=== PATIENT | female | born 1990 | race Caucasian/White ===

== ENCOUNTER → 2016-09-02 | Outpatient (CLI) | payer OTHER ==
[~2016-09-02] MED LIST: CYCL-36 PO; DICL75 PO; Z.0.BCPILL PO
== END ==
LOC: HPND 09:50
PROVIDERS: ATTEND Obstetrics & Gynecology
DX: N02.8 Recurrent and persistent hematuria with other morphologic changes (principal); O26.90 Pregnancy related conditions, unspecified, unspecified trimester; Z3A.00 Weeks of gestation of pregnancy not specified
CPT/HCPCS: 76811

== ENCOUNTER → 2016-10-03 | Outpatient (CLI) | payer OTHER | LOC: HPND 09:27 | PROVIDERS: ATTEND Obstetrics & Gynecology | DX: O09.292 Supervision of pregnancy with other poor reproductive or obstetric history, second trimester (principal); O99.212 Obesity complicating pregnancy, second trimester; Z3A.32 32 weeks gestation of pregnancy | CPT/HCPCS: 76816 ==

== ENCOUNTER 2016-10-25 22:57 | Emergency (ER) | payer OTHER ==
--- NOTE | 2016-10-25 23:21 | PD ---
HPI Chief Complaint Possibly leaking fluid Date Seen: Oct 25, 2016 Time Seen: 23:10 Travel History International Travel<30 Days: No Contact w/Intl Traveler<30Days: No Known Affected Area: No History of Present Illness HPI 25-year-old primigravida at 35+ weeks gestation who thinks she may have had some fluid leaking. She denies any contractions or bleeding. She reports good movement. She has primarily felt just a little dampness and her mother suggested she come for evaluation of this. Para: 0 : 1 History Past Medical History Medical History: Denies Significant Hx Obstetric History Obstetric History Primigravida patient with Dr. Kumar. Uncomplicated course Past Surgical History Surgical History: No Previous Surgery Family History Family History: Negative Social History Alcohol Use: No Tobacco Use: No Substance Abuse: No Allergies-Medications (Allergen,Severity, Reaction): Coded Allergies: No Known Allergies (Verified , 04/02/13) Home Meds Active Scripts Cyclobenzaprine Hcl (Flexeril)10 Mg Tab10 Mg PO TID #30 Prov:Michael Garcia MD 08/10/13 Diclofenac Sod (Diclofenac Sodium Dr)75 Mg Tab75 Mg PO BID 20 Days Prov:Michael Garcia MD 08/10/13 Reported Medications Miscellaneous ( Control Pills) Tab1 Tab PO DAILY 08/10/13 Review of Systems Except as stated in HPI: all other systems reviewed are Neg Physical Exam Narrative GENERAL: Well-nourished, well-developed patient. SKIN: Warm and dry. HEAD: Normocephalic and atraumatic. EYES: No scleral icterus. No injection or drainage. ENT: No nasal drainage noted. Mucous membranes pink. Airway patent. NECK: Supple, trachea midline. No JVD. CARDIOVASCULAR: Regular rate and rhythm without murmurs, gallops, or rubs. RESPIRATORY: Breath sounds equal bilaterally. No accessory muscle use. ABDOMEN/GI: Abdomen soft, non-tender, bowel sounds present, no rebound, no guarding Gravid to [-] weeks size Fundal Height: [-35] GENITOURINARY: External Genitalia: intact and normal in appearance BUS glands: [-Negative] Cervix: [-] Dilatation: [Closed-] Effacement: [-50] Station: [-2-] Presentation: [Vertex-] Membranes: [intact ] Uterine Contractions: [-No] FHT's: Category: [1-] Baseline: [-] Reactive: [-Yes] Variability: [-] Decels: [-] EXTREMITIES: No cyanosis or edema. BACK: Nontender without obvious deformity. No CVA tenderness. NEUROLOGICAL: Awake and alert. Motor and sensory grossly within normal limits. Five out of 5 muscle strength in all muscle groups. Normal speech. Data Data Vital Signs Reviewed: Yes MDM Medical Record Reviewed: Yes Narrative Course / MDM Assessment: 35+ week intrauterine with negative evaluation for ruptured membranes. Plan: Continue to follow up for routine care visits. Diagnosis Diagnosis: Primary Impression: 35 weeks gestation of Additional Impression: amniotic fluid not leaking Disposition: 01 DISCHARGE HOME John Rosenthal MD Oct 25, 2016 23:21
== END 2016-10-25 23:55 | disposition home or self-care (01) ==
LOC: HOBED 22:57
DX: O26.893 Other specified pregnancy related conditions, third trimester (principal); Z3A.35 35 weeks gestation of pregnancy
CPT/HCPCS: 84112; 99282

== ENCOUNTER 2016-10-28 16:44 | Emergency (ER) | payer OTHER ==
[2016-10-28] VITALS (8 sets, daily range): BP systolic 132–150; BP diastolic 57–79; PULSE 97–106
[~2016-10-28] VITALS: Ht 172.7 cm; Wt 131.5 kg
[2016-10-28 17:56] LABS: HEMATOCRIT 33.7 % (35.0-46.0); MEAN CELL VOLUME 85.9 FL (80.0-100.0); MEAN CORPUSCULAR HEMOGLOBIN 29.3 PG (27.0-34.0); MEAN CORPUSCULAR HGB CONC 34.1 % (32.0-36.0); PLATELET COUNT 250 TH/MM3 (150-450); RED BLOOD COUNT 3.92 MIL/MM3 (4.00-5.30); RED CELL DISTRIBUTION WIDTH 13.7 % (11.6-17.2); REVIEW FLAG FINAL; WHITE BLOOD COUNT 10.2 TH/MM3 (4.0-11.0)
[2016-10-28 17:59] LABS: BLOOD, URINE SMALL (NEG); COMMENT (UR) CULT NOT INDICATED; CULTURE IF INDICATED CULT NOT INDICATED; GLUCOSE,URINE NEG (NEG); KETONE, URINE NEG (NEG); MUCUS URINE FEW /lpf (OCC); NITRITE,URINE NEG (NEG); SQUAMOUS EPITHELIAL CELL URINE 13 /hpf (0-5); URINE COLOR YELLOW (YELLW/STRAW)
[2016-10-28 18:12] LABS: ALT (GPT) 24 U/L (10-53); ANION GAP 9 MEQ/L (5-15); AST (GOT) 16 U/L (15-37); BICARBONATE 25.1 MEQ/L (21.0-32.0); CHLORIDE 106 MEQ/L (98-107); GLOMERULAR FILTRATION RATE 113 ML/MIN (>89); POTASSIUM 3.7 MEQ/L (3.5-5.1); SODIUM (NA) 140 MEQ/L (136-145); URIC ACID 3.7 MG/DL (2.6-6.0)
[2016-10-28 18:14] LABS: ALKALINE PHOSPHATASE 110 U/L (45-117); BLOOD UREA NITROGEN 11 MG/DL (7-18); TOTAL BILIRUBIN ADULT 0.2 MG/DL (0.2-1.0)
--- NOTE | 2016-10-28 18:54 | PD ---
HPI Chief Complaint sent from OB office for pre-e evaluation Date Seen: Oct 28, 2016 Time Seen: 17:30 Travel History International Travel<30 Days: No Contact w/Intl Traveler<30Days: No Known Affected Area: No History of Present Illness HPI Pt is a 25 y/o G1 with IUP at 35.5 wks who presents from OB office for pre-e eval. pt states bp in office was 124/84, but swelling has increased. Pt denies headache, ruq pain, vision changes. She has been having LE edema for weeks, but now more persistant. She also notices tightness in her hands by the end of the day. 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 Para: 0 : 1 History Past Medical History Narrative Medical IGA nephropathy obesity Past Surgical History Narrative Surgical oral surgery Family History Family History: Negative Social History Alcohol Use: No Tobacco Use: No Substance Abuse: No Allergies-Medications (Allergen,Severity, Reaction): Coded Allergies: No Known Allergies (Verified , 04/02/13) Home Meds Discontinued Reported Medications Miscellaneous ( Control Pills) Tab1 Tab PO DAILY 08/10/13 Discontinued Scripts Cyclobenzaprine Hcl (Flexeril)10 Mg Tab10 Mg PO TID #30 Prov:Michael Garcia MD 08/10/13 Diclofenac Sod (Diclofenac Sodium Dr)75 Mg Tab75 Mg PO BID 20 Days Prov:Michael Garcia MD 08/10/13 Narrative Medication PNV, tums Review of Systems General / Constitutional: Weight Gain Eyes: No: Diploplia, Blurred Vision, Visual changes, Pain, Photophobia, Other HENT: No: Headaches, Vertigo, Dental Difficulties, Lightheadedness, Other Cardiovascular: No: Irregular Rhythm, Chest Pain or Discomfort, Palpitations, Tachycardia, Syncope, Varicosities, Edema, Cyanosis, Other Respiratory: No: Cough, Short of Breath, Wheezing, Other Gastrointestinal: No: Nausea, Vomiting, Diarrhea, Abdominal Pain, Hematemesis, Hematochezia, Constipation, Changes in Bowel Habits, Indigestion, Loss of Appetite, Other Genitourinary: No: Urgency, Frequency, Dysuria, Nocturia, Hematuria, Decreased Urinary Output, Oliguria, Hesitancy, Dribbling, Incontinence, Pelvic Pain, Dyspareunia, Discharge, Menorrhagia, Vaginal Bleeding, Other Musculoskeletal: Edema Skin: No Rash, No Itching, No Dryness, No Lumps, No Change in Pigmentation, No Change in Nails, No Alopecia, No Lesions, No Breast Lumps, No Breast Tenderness , No Breast Swelling, No Other Neurologic: No: Weakness, Dizziness, Syncope, Focal Abnormalities, Coordination Problem, Headache, Slurred Speech, Seizures, Other Psychiatric: No: Anxiety, Depression, Suicidal Ideations, Disorder of Thought, Mood Disorder, Substance Abuse, Homicidal Ideation, Other Endocrine: No: Heat Intolerance, Cold Intolerance, Polydipsia, Polyuria, Other Hematologic/Lymphatic: No Easy Bruising, No Lymph Node Enlargement, No Other Physical Exam Vital Signs Date Time Temp Pulse Resp B/P Pulse Ox O2 Delivery O2 Flow Rate FiO2 10/28/16 17:51 103 141/57 10/28/16 17:46 104 10/28/16 17:36 104 149/59 10/28/16 17:31 100 150/66 10/28/16 17:25 103 139/79 10/28/16 17:01 106 138/76 132/74, 134/61 Narrative GENERAL: Well-nourished, well-developed patient. SKIN: Warm and dry. HEAD: Normocephalic and atraumatic. EYES: No scleral icterus. No injection or drainage. ENT: No nasal drainage noted. Mucous membranes pink. Airway patent. NECK: Supple, trachea midline. No JVD. CARDIOVASCULAR: Regular rate and rhythm without murmurs, gallops, or rubs. RESPIRATORY: Breath sounds equal bilaterally. No accessory muscle use. BREASTS: Bilateral exam showed no masses , no retractions, no nipple discharge. ABDOMEN/GI: Abdomen soft, non-tender, bowel sounds present, no rebound, no guarding Gravid GENITOURINARY: Uterine Contractions: [none] FHT's: Category: 1 Baseline: 140 Reactive: yes Variability: mod Decels: no EXTREMITIES: 1+ pitting edema to knee BACK: Nontender without obvious deformity. No CVA tenderness. NEUROLOGICAL: Awake and alert. Motor and sensory grossly within normal limits. Five out of 5 muscle strength in all muscle groups. Normal speech. unable to illicit patellar DTRs Data Data Vital Signs Reviewed: Yes Orders Vital Signs (Adult) .ON ADMISSION (10/28/16 17:20) ^ Labor Status (10/28/16 17:20) Urinalysis - C+S If Indicated (10/28/16 17:20) ^ Non Stress Test (10/28/16 17:20) Cbc No Diff, Includes Plts (10/28/16 17:20) Comprehensive Metabolic Panel (10/28/16 17:20) Uric Acid (10/28/16 17:20) Labs Laboratory Tests Test 10/28/16 10/28/16 17:36 17:40 Urine Color YELLOW Urine Turbidity HAZY Urine pH 6.0 Urine Specific [place] 1.025 Urine Protein 100 Urine Glucose (UA) NEG Urine Ketones NEG Urine Occult Blood SMALL Urine Nitrite NEG Urine Bilirubin NEG Urine Urobilinogen LESS THAN 2.0 Urine Leukocyte Esterase NEG Urine RBC 18 Urine WBC 3 Urine Squamous Epithelial 13 Cells Urine Mucus FEW Microscopic Urinalysis Comment CULT NOT INDICATED White Blood Count 10.2 Red Blood Count 3.92 Hemoglobin 11.5 Hematocrit 33.7 Mean Corpuscular Volume 85.9 Mean Corpuscular Hemoglobin 29.3 Mean Corpuscular Hemoglobin 34.1 Concent Red Cell Distribution Width 13.7 Platelet Count 250 Mean Platelet Volume 8.0 Sodium Level 140 Potassium Level 3.7 Chloride Level 106 Carbon Dioxide Level 25.1 Anion Gap 9 Blood Urea Nitrogen 11 Creatinine 0.64 Estimat Glomerular Filtration 113 Rate Random Glucose 110 Uric Acid 3.7 Calcium Level 9.2 Total Bilirubin 0.2 Aspartate Amino Transf 16 (AST/SGOT) Alanine Aminotransferase 24 (ALT/SGPT) Alkaline Phosphatase 110 Total Protein 6.5 Albumin 2.6 MDM Medical Record Reviewed: Yes Narrative Course / MDM 25 y/o G1 with IUP at 35.5 wks with mildly elevated blood pressures, LE edema --preeclampsia labs wnl and patient asymptomatic --picture complicated by chronic proteinuria (IGA nephropathy) last 24 hr urine with 800 mg protein/24 hrs plan: d/c home modified bedrest at home s/sx pre-e reviewed s/sx labor reviewed C reviewed call Ob office in am for return appt within 1 wk return for any s/sx preeclampsia, s/sx labor, decreased FM or other obstetric concerns Diagnosis Diagnosis: Primary Impression: Edema in preg-delivered Additional Impression: 35 weeks gestation of Disposition: 01 DISCHARGE HOME Jaya Reyes MD Oct 28, 2016 18:54
== END 2016-10-28 18:59 | disposition home or self-care (01) ==
LOC: HOBED 16:44
DX: O12.03 Gestational edema, third trimester (principal); Z3A.35 35 weeks gestation of pregnancy
CPT/HCPCS: 59025; 80053; 81001; 84550; 85027

== ENCOUNTER 2016-11-02 18:31 | Emergency (ER) | payer OTHER ==
[~2016-11-02] VITALS: Ht 172.7 cm; Wt 131.5 kg
[2016-11-02 19:51] LABS: BACTERIA, URINE RARE /hpf; BLOOD, URINE SMALL (NEG); COMMENT (UR) CULT NOT INDICATED; CULTURE IF INDICATED CULT NOT INDICATED; GLUCOSE,URINE NEG (NEG); KETONE, URINE NEG (NEG); MUCUS URINE FEW /lpf (OCC); NITRITE,URINE NEG (NEG); SQUAMOUS EPITHELIAL CELL URINE 4 /hpf (0-5); URINE COLOR LIGHT-YELLOW (YELLW/STRAW)
--- NOTE | 2016-11-02 20:05 | PD ---
HPI Chief Complaint High blood pressure taken at [employer] store Date Seen: Nov 02, 2016 Travel History International Travel<30 Days: No Contact w/Intl Traveler<30Days: No Known Affected Area: No History of Present Illness HPI Patient is 25-year-old white female at 36 weeks' gestation because the [facility] clinic who presents with elevated blood pressures when she went [place] today and checked her pressure, the patient's blood pressures are 150 over 80s was 1 was 150/90 and a 150/100 patient has no complaints of blurry vision and headaches abdominal pain however she does complain of increased swelling she noted today in her lower extremities but much more so that should seen before so assisting bed rest which she was told stay at bedrest she got up and went [employer] and while [employer] and called her mother is a nurse and mother told her to get her blood pressure check and she did and it was up at that time. heart rate tracing today is reactive and no contractions are regular. Blood pressures here on OB ED are normal 110 over 60s ,130/80 Para: 0 : 1 History Past Medical History Narrative Medical Patient has a history of IgA nephropathy and chronically spill significant proteinuria. Last 24-hour urine was a little over a week ago was 800 mg protein in 24 hours and she routinely dipsticks 2+ urine protein Social History Alcohol Use: No Tobacco Use: No Substance Abuse: No Allergies-Medications (Allergen,Severity, Reaction): Coded Allergies: No Known Allergies (Verified , 04/02/13) Home Meds Discontinued Reported Medications Miscellaneous ( Control Pills) Tab1 Tab PO DAILY 08/10/13 Discontinued Scripts Cyclobenzaprine Hcl (Flexeril)10 Mg Tab10 Mg PO TID #30 Prov:Michael Garcia MD 08/10/13 Diclofenac Sod (Diclofenac Sodium Dr)75 Mg Tab75 Mg PO BID 20 Days Prov:iMchael Garcia MD 08/10/13 Review of Systems General / Constitutional: No: Fever, Weight Gain, Chills, Other Eyes: No: Diploplia, Blurred Vision, Visual changes, Pain, Photophobia HENT: No: Headaches, Vertigo, Lightheadedness Cardiovascular: No: Irregular Rhythm, Chest Pain or Discomfort, Palpitations, Tachycardia, Syncope, Varicosities, Edema, Cyanosis Respiratory: No: Cough, Short of Breath, Other Gastrointestinal: No: Nausea, Vomiting, Diarrhea Genitourinary: No: Decreased Urinary Output, Oliguria Musculoskeletal: No: Limited ROM, Weakness, Cramping, Edema, Pain Skin: No Rash, No Itching, No Dryness, No Lumps, No Change in Pigmentation, No Change in Nails, No Alopecia, No Lesions Neurologic: No: Weakness, Dizziness, Syncope, Focal Abnormalities, Coordination Problem, Headache, Slurred Speech, Seizures Psychiatric: No: Depression, Suicidal Ideations, Homicidal Ideation Endocrine: No: Heat Intolerance, Cold Intolerance, Polydipsia, Polyuria, Other Physical Exam Narrative GENERAL: Well-nourished, well-developed patient. SKIN: Warm and dry. HEAD: Normocephalic and atraumatic. EYES: No scleral icterus. No injection or drainage. ENT: No nasal drainage noted. Mucous membranes pink. Airway patent. NECK: Supple, trachea midline. No JVD. CARDIOVASCULAR: Regular rate and rhythm without murmurs, gallops, or rubs. RESPIRATORY: Breath sounds equal bilaterally. No accessory muscle use. BREASTS: Bilateral exam showed no masses , no retractions, no nipple discharge. ABDOMEN/GI: Abdomen soft, non-tender, bowel sounds present, no rebound, no guarding Gravid to [-36] weeks size Fundal Height: [36-] GENITOURINARY: Membranes: [intact ] Uterine Contractions: [Occasional-] FHT's: Category: [1-] Baseline: [133-] Reactive: [yes-] Variability: [mod-] Decels: [-0] EXTREMITIES: No cyanosis, she has 2+ nonpitting edema in the pretibial area BACK: Nontender without obvious deformity. No CVA tenderness. NEUROLOGICAL: Awake and alert. Motor and sensory grossly within normal limits. Five out of 5 muscle strength in all muscle groups. Normal speech, normal DTRs Data Data Orders Urinalysis - C+S If Indicated (11/02/16 19:05) Labs Laboratory Tests Test 11/02/16 18:50 Urine Color LIGHT-YELLOW Urine Turbidity HAZY Urine pH 6.0 Urine Specific [place] 1.012 Urine Protein TRACE Urine Glucose (UA) NEG Urine Ketones NEG Urine Occult Blood SMALL Urine Nitrite NEG Urine Bilirubin NEG Urine Urobilinogen LESS THAN 2.0 Urine Leukocyte Esterase TRACE Urine RBC 2 Urine WBC 3 Urine Squamous Epithelial 4 Cells Urine Bacteria RARE Urine Mucus FEW Microscopic Urinalysis Comment CULT NOT INDICATED MDM Interpretation(s) This patient is 25-year-old white female at 36 weeks followed by [facility] clinic. Recently is developed elevated blood pressures. She has a history of a and intrinsic nephropathy that they cause her chronically spill significant protein. She noted high blood pressures today when she went out to [facility], today on OB ED her blood pressures were all within normal limits, urinalysis shows only a trace protein today and is also negative for any infection , therefore she does not appear to be an increase in protein she seems to be spilling on a regular basis Plan Plan patient be discharged home to bed rest only getting up to the bathroom and eat otherwise she is reclined with her legs up, she is to see a [facility] providers of this upcoming week and a repeat 24-hour urine protein could be done as an outpatient and is indicated, at the point she has a great increase in her proteinuria or persistent hypertension and delivery very likely indicated Diagnosis Diagnosis: Primary Impression: Hypertension affecting in third trimester Additional Impression: Nephropathy Disposition: 01 DISCHARGE HOME Condition: Stable Patient Instructions: General Instructions Departure Forms: Tests/Procedures Lincoln Becker II, MD Nov 02, 2016 20:05
== END 2016-11-02 20:09 | disposition home or self-care (01) ==
LOC: HOBED 18:31
DX: O16.3 Unspecified maternal hypertension, third trimester (principal); Z3A.36 36 weeks gestation of pregnancy
CPT/HCPCS: 81001; 99282

== ENCOUNTER → 2016-11-04 | Outpatient (CLI) | payer OTHER | LOC: HPND 13:59 | PROVIDERS: ATTEND Obstetrics & Gynecology | DX: O99.213 Obesity complicating pregnancy, third trimester (principal); O26.843 Uterine size-date discrepancy, third trimester; E66.09 Other obesity due to excess calories; Z68.37 Body mass index [BMI] 37.0-37.9, adult; Z3A.36 36 weeks gestation of pregnancy | CPT/HCPCS: 76816 ==

== ENCOUNTER 2016-11-12 15:49 | Emergency (ER) | payer OTHER ==
[2016-11-12] VITALS (21 sets, daily range): BP systolic 103–136; BP diastolic 62–94; PULSE 92–125
[2016-11-12 18:01] LABS: HEMATOCRIT 33.7 % (35.0-46.0); MEAN CELL VOLUME 87.3 FL (80.0-100.0); MEAN CORPUSCULAR HEMOGLOBIN 29.2 PG (27.0-34.0); MEAN CORPUSCULAR HGB CONC 33.4 % (32.0-36.0); PLATELET COUNT 239 TH/MM3 (150-450); RED BLOOD COUNT 3.86 MIL/MM3 (4.00-5.30); REVIEW FLAG FINAL; WHITE BLOOD COUNT 10.2 TH/MM3 (4.0-11.0)
[2016-11-12 18:08] LABS: BACTERIA, URINE RARE /hpf; BLOOD, URINE SMALL (NEG); COMMENT (UR) CULT NOT INDICATED; CULTURE IF INDICATED CULT NOT INDICATED; GLUCOSE,URINE NEG (NEG); HYALINE CAST, URINE 1 /lpf (RARE); KETONE, URINE TRACE mg/dL (NEG); MUCUS URINE MANY /lpf (OCC); NITRITE,URINE NEG (NEG); SQUAMOUS EPITHELIAL CELL URINE 4 /hpf (0-5); URINE COLOR YELLOW (YELLW/STRAW)
[2016-11-12 18:13] LABS: ALT (GPT) 28 U/L (10-53); ANION GAP 12 MEQ/L (5-15); BICARBONATE 21.1 MEQ/L (21.0-32.0); BLOOD UREA NITROGEN 15 MG/DL (7-18); CHLORIDE 108 MEQ/L (98-107); GLOMERULAR FILTRATION RATE 102 ML/MIN (>89); POTASSIUM 3.9 MEQ/L (3.5-5.1); SODIUM (NA) 141 MEQ/L (136-145); URIC ACID 4.5 MG/DL (2.6-6.0)
[2016-11-12 18:17] LABS: ALKALINE PHOSPHATASE 127 U/L (45-117); AST (GOT) 19 U/L (15-37); TOTAL BILIRUBIN ADULT 0.1 MG/DL (0.2-1.0)
--- NOTE | 2016-11-12 18:39 | PD ---
HPI Chief Complaint sent from OB office for preeclampsia evaluation Date Seen: Nov 12, 2016 Time Seen: 18:00 Travel History International Travel<30 Days: No Contact w/Intl Traveler<30Days: No Known Affected Area: No History of Present Illness HPI Pt is a 25 y/o G1 with IUP at 37.5 wks who was sent from OB office for pre-e workup. Pt reports BP in office of 132/82. Pt also with proteinuria, but pt has h/o chronic proteinuria/IGA nephropathy. Pt denies headache, ruq pain, vision changes. She has some intermittent mild LE edema. Para: 0 : 1 History Past Medical History Narrative Medical IGA nephropathy Past Surgical History Surgical History: No Previous Surgery Family History Family History: Negative Social History Alcohol Use: No Tobacco Use: No Substance Abuse: No Allergies-Medications (Allergen,Severity, Reaction): Coded Allergies: No Known Allergies (Verified , 04/02/13) Narrative Medication PNV Review of Systems General / Constitutional: Weight Gain, No: Fever, Weight Loss, Chills, Other Eyes: No: Diploplia, Blurred Vision, Visual changes, Pain, Photophobia, Other HENT: No: Headaches, Vertigo, Dental Difficulties, Lightheadedness, Other Cardiovascular: No: Irregular Rhythm, Chest Pain or Discomfort, Palpitations, Tachycardia, Syncope, Varicosities, Edema, Cyanosis, Other Respiratory: No: Cough, Short of Breath, Wheezing, Other Gastrointestinal: No: Nausea, Vomiting, Diarrhea, Abdominal Pain, Hematemesis, Hematochezia, Constipation, Changes in Bowel Habits, Indigestion, Loss of Appetite, Other Genitourinary: No: Urgency, Frequency, Dysuria, Nocturia, Hematuria, Decreased Urinary Output, Oliguria, Hesitancy, Dribbling, Incontinence, Pelvic Pain, Dyspareunia, Discharge, Menorrhagia, Vaginal Bleeding, Other Musculoskeletal: No: Limited ROM, Weakness, Cramping, Edema, Pain, Other Skin: No Rash, No Itching, No Dryness, No Lumps, No Change in Pigmentation, No Change in Nails, No Alopecia, No Lesions, No Breast Lumps, No Breast Tenderness , No Breast Swelling, No Other Neurologic: No: Weakness, Dizziness, Syncope, Focal Abnormalities, Coordination Problem, Headache, Slurred Speech, Seizures, Other Psychiatric: No: Anxiety, Depression, Suicidal Ideations, Disorder of Thought, Mood Disorder, Substance Abuse, Homicidal Ideation, Other Hematologic/Lymphatic: No Easy Bruising, No Lymph Node Enlargement, No Other Physical Exam Vital Signs Date Time Temp Pulse Resp B/P Pulse Ox O2 Delivery O2 Flow Rate FiO2 11/12/16 18:00 98 11/12/16 17:55 92 11/12/16 17:50 96 11/12/16 17:45 102 11/12/16 17:40 101 11/12/16 17:35 100 11/12/16 17:30 102 11/12/16 17:25 102 11/12/16 17:20 98 11/12/16 17:15 106 11/12/16 17:10 98 11/12/16 17:05 106 11/12/16 17:00 103 11/12/16 16:56 120 111/62 11/12/16 16:55 103 11/12/16 16:51 118 124/73 11/12/16 16:50 102 11/12/16 16:46 125 103/71 11/12/16 16:45 93 11/12/16 16:43 102 136/94 11/12/16 16:40 97 Narrative GENERAL: Well-nourished, well-developed patient. SKIN: Warm and dry. HEAD: Normocephalic and atraumatic. EYES: No scleral icterus. No injection or drainage. ENT: No nasal drainage noted. Mucous membranes pink. Airway patent. NECK: Supple, trachea midline. No JVD. CARDIOVASCULAR: Regular rate and rhythm without murmurs, gallops, or rubs. RESPIRATORY: Breath sounds equal bilaterally. No accessory muscle use. ABDOMEN/GI: Abdomen soft, non-tender, bowel sounds present, no rebound, no guarding Gravid GENITOURINARY: FHT's: Category: [1] Baseline: [150s ] Reactive: [yes-] Variability: mod Decels: occ small non-repetitive variable decel EXTREMITIES: No cyanosis, 1+ pedal edema BACK: Nontender without obvious deformity. No CVA tenderness. NEUROLOGICAL: Awake and alert. Motor and sensory grossly within normal limits. Five out of 5 muscle strength in all muscle groups. Normal speech. Data Data Vital Signs Reviewed: Yes Orders Vital Signs (Adult) .ON ADMISSION (11/12/16 16:54) ^ Labor Status (11/12/16 16:54) Urinalysis - C+S If Indicated (11/12/16 16:54) ^ Non Stress Test (11/12/16 16:54) ^ Hydration (11/12/16 16:54) Cbc No Diff, Includes Plts (11/12/16 16:54) Comprehensive Metabolic Panel (11/12/16 16:54) Uric Acid (11/12/16 16:54) Labs Laboratory Tests Test 11/12/16 17:03 White Blood Count 10.2 Red Blood Count 3.86 Hemoglobin 11.3 Hematocrit 33.7 Mean Corpuscular Volume 87.3 Mean Corpuscular Hemoglobin 29.2 Mean Corpuscular Hemoglobin 33.4 Concent Red Cell Distribution Width 14.0 Platelet Count 239 Mean Platelet Volume 8.4 Urine Color YELLOW Urine Turbidity HAZY Urine pH 6.0 Urine Specific [place] 1.036 Urine Protein 300 Urine Glucose (UA) NEG Urine Ketones TRACE Urine Occult Blood SMALL Urine Nitrite NEG Urine Bilirubin NEG Urine Urobilinogen 2.0 Urine Leukocyte Esterase NEG Urine RBC 7 Urine WBC 2 Urine Squamous Epithelial 4 Cells Urine Amorphous Sediment RARE Urine Bacteria RARE Urine Hyaline Casts 1 Urine Mucus MANY Microscopic Urinalysis Comment CULT NOT INDICATED Sodium Level 141 Potassium Level 3.9 Chloride Level 108 Carbon Dioxide Level 21.1 Anion Gap 12 Blood Urea Nitrogen 15 Creatinine 0.70 Estimat Glomerular Filtration 102 Rate Random Glucose 119 Uric Acid 4.5 Calcium Level 8.5 Total Bilirubin 0.1 Aspartate Amino Transf 19 (AST/SGOT) Alanine Aminotransferase 28 (ALT/SGPT) Alkaline Phosphatase 127 Total Protein 6.2 Albumin 2.3 MDM Medical Record Reviewed: Yes ( records reviewed) Narrative Course / MDM 25 y/o G1 with IUP at 37.5 wks with high normal blood pressure in office normal blood pressures here labs unremarkable pt with significant protein on urine dip, but h/o IGA nephropathy d/c home preeclampsia precautions keep OB appt Diagnosis Diagnosis: Primary Impression: Hypertension affecting in third trimester Additional Impression: 37 weeks gestation of Disposition: 01 DISCHARGE HOME Condition: Stable Patient Instructions: General Instructions Jaya Reyes MD Nov 12, 2016 18:39
== END 2016-11-12 18:43 | disposition home or self-care (01) ==
LOC: HOBED 15:49
DX: O14.93 Unspecified pre-eclampsia, third trimester (principal); O16.3 Unspecified maternal hypertension, third trimester; Z3A.37 37 weeks gestation of pregnancy
CPT/HCPCS: 59025; 80053; 81001; 84550; 85027

== ENCOUNTER 2016-11-17 09:23 | Observation (INO) | payer OTHER ==
[2016-11-17] VITALS (72 sets, daily range): BP systolic 122–164; BP diastolic 51–101; PULSE 77–111; RESP 16–20; TEMP 98–98.2
--- NOTE | 2016-11-17 10:12 | PD ---
HPI Chief Complaint Leakage of fluid and swelling Date Seen: Nov 17, 2016 Time Seen: 09:40 (Brandon Foley MD R1) Travel History International Travel<30 Days: No Contact w/Intl Traveler<30Days: No Known Affected Area: No (Brandon Foley MD R1) History of Present Illness HPI 25-year-old at 38/3 weeks gestation presenting for leakage of fluid this morning around 8 AM and some edema for the last several days. She denies chest pain, shortness of breath, vaginal bleeding. She denies headaches, vision changes, epigastric pain. Fluid this morning was a small amount and clear. She denies feeling contractions. She thought the fluid was her water breaking at first, but now since no fluid has continued to gush out she is thinking she may have just been leaking urine. (Brandon Foley MD R1) History Past Medical History Narrative Medical IgA nephropathy (Brandon Foley MD R1) Obstetric History Obstetric History First (Brandon Foley MD R1) Past Surgical History Surgical History: No Previous Surgery (Brandon Foley MD R1) Family History Family History: Negative (Brandon Foley MD R1) Social History Alcohol Use: No Tobacco Use: No Substance Abuse: No (Brandon Foley MD R1) Allergies-Medications (Allergen,Severity, Reaction): Coded Allergies: No Known Allergies (Verified , 11/17/16) Review of Systems Except as stated in HPI: all other systems reviewed are Neg (Brandon Foley MD R1) Physical Exam Narrative GENERAL: Well-nourished, well-developed patient. SKIN: Warm and dry. HEAD: Normocephalic and atraumatic. EYES: No scleral icterus. No injection or drainage. ENT: No nasal drainage noted. Mucous membranes pink. Airway patent. NECK: Supple, trachea midline. No JVD. CARDIOVASCULAR: Regular rate and rhythm without murmurs, gallops, or rubs. RESPIRATORY: Breath sounds equal bilaterally. No accessory muscle use. BREASTS: Bilateral exam showed no masses , no retractions, no nipple discharge. ABDOMEN/GI: Abdomen soft, non-tender, no rebound, no guarding GENITOURINARY: Exam deferred. Uterine Contractions: Irregular and infrequent (Q15-20 mins) FHT's: Category: 1 Baseline: 145 Reactive: Y Variability: moderate Decels: N EXTREMITIES: No cyanosis. Moderate non-pitting edema to BLE just above ankles. BACK: Nontender without obvious deformity. No CVA tenderness. NEUROLOGICAL: Awake and alert. Motor and sensory grossly within normal limits. Five out of 5 muscle strength in all muscle groups. Normal speech. (Brandon Foley MD R1) Data Data Vital Signs Reviewed: Yes Orders Vital Signs (Adult) .ON ADMISSION (11/17/16 09:32) ^ Labor Status (11/17/16 09:32) ^ Non Stress Test (11/17/16 09:32) ^ Hydration (11/17/16:32) Urinalysis - C+S If Indicated (11/17/16 09:43) Cbc No Diff, Includes Plts (11/17/16 09:43) Comprehensive Metabolic Panel (11/17/16:43) Uric Acid (11/17/16:43) Pamg-1 Test .ONCE (11/17/16:43) Protein Creat Ratio, Random Ur (11/17/16 10:00) (Brandon Foley MD R1) MDM Medical Record Reviewed: Yes Narrative Course / MDM 25-year-old at 38/3 weeks gestation presenting with possible rupture of membrane #1 IUP Category 1 tracing, reassuring - Continuous monitoring #2 possible ROM Amni-sure negative, rupture of membranes ruled out #3 hypertension in Several blood pressures ranging 150-160 systolic, no signs or symptoms of preeclampsia except mild pedal edema Platelets within normal limits LFTs within normal limits Uric acid within normal limits Urine protein 100, decreased from November 12 level of 300 (patient has baseline IgA nephropathy) - Admit for 24-hour observation - 24-hour urine protein collection - BP Q4H while awake sdw Dr. Dodge wdw Dr. Kumar (Brandon Foley MD R1) Diagnosis Diagnosis: Primary Impression: Hypertension affecting in third trimester Collaborating MD Comments Patient seen and evaluated. Will admit for 23hr obs due to elevated blood pressure (Rosetta Dodge MD) Brandon Foley MD R1 Nov 17, 2016 10:12 Rosetta Dodge MD Nov 18, 2016 07:50
[2016-11-17 10:34] LABS: HEMATOCRIT 34.2 % (35.0-46.0); MEAN CELL VOLUME 87.3 FL (80.0-100.0); MEAN CORPUSCULAR HEMOGLOBIN 29.4 PG (27.0-34.0); MEAN CORPUSCULAR HGB CONC 33.6 % (32.0-36.0); PLATELET COUNT 231 TH/MM3 (150-450); RED BLOOD COUNT 3.92 MIL/MM3 (4.00-5.30); RED CELL DISTRIBUTION WIDTH 13.7 % (11.6-17.2); REVIEW FLAG FINAL; WHITE BLOOD COUNT 9.7 TH/MM3 (4.0-11.0)
[2016-11-17 10:48] LABS: ANION GAP 10 MEQ/L (5-15); AST (GOT) 19 U/L (15-37); BICARBONATE 22.1 MEQ/L (21.0-32.0); BLOOD UREA NITROGEN 9 MG/DL (7-18); CHLORIDE 108 MEQ/L (98-107); GLOMERULAR FILTRATION RATE 115 ML/MIN (>89); SODIUM (NA) 140 MEQ/L (136-145); URIC ACID 4.7 MG/DL (2.6-6.0)
[2016-11-17 10:49] LABS: ALT (GPT) 29 U/L (10-53)
[2016-11-17 10:50] LABS: BACTERIA, URINE OCC /hpf; BLOOD, URINE SMALL (NEG); COMMENT (UR) CULTURE INDICATED; CULTURE IF INDICATED CULTURE INDICATED; GLUCOSE,URINE NEG (NEG); KETONE, URINE NEG (NEG); MUCUS URINE FEW /lpf (OCC); NITRITE,URINE NEG (NEG); PH, URINE 6.5 (5.0-8.5); SQUAMOUS EPITHELIAL CELL URINE 25 /hpf (0-5); URINE COLOR YELLOW (YELLW/STRAW)
[2016-11-17 10:51] LABS: ALKALINE PHOSPHATASE 130 U/L (45-117); TOTAL BILIRUBIN ADULT 0.3 MG/DL (0.2-1.0)
[2016-11-17] MEDS ORDERED: SODIUM CHLORIDE 0.9% FLUSH 10 ML FLUSH IV FLUSH PRN (11:15)
[2016-11-17] MEDS ORDERED: ACETAMINOPHEN 325 MG TAB PO PRN (11:15)
[2016-11-17] MEDS ORDERED: ONDANSETRON ODT 4 MG TAB PO PRN (11:15)
--- NOTE | 2016-11-17 11:54 | HHI.HP ---
History & Physical H&P HPI HPI Chief Complaint Leakage of fluid and swelling Date Seen: Nov 17, 2016 Time Seen: 09:40 Travel History International Travel<30 Days: No Contact w/Intl Traveler<30Days: No Known Affected Area: No History of Present Illness HPI 25-year-old at 38/3 weeks gestation presenting for leakage of fluid this morning around 8 AM and some edema for the last several days. She denies chest pain, shortness of breath, vaginal bleeding. She denies headaches, vision changes, epigastric pain. Fluid this morning was a small amount and clear. She denies feeling contractions. She thought the fluid was her water breaking at first, but now since no fluid has continued to gush out she is thinking she may have just been leaking urine. History (Limited) History Past Medical History Narrative Medical IgA nephropathy Obstetric History Obstetric History First Past Surgical History Surgical History: No Previous Surgery Family History Family History: Negative Social History Alcohol Use: No Tobacco Use: No Substance Abuse: No Allergies-Medications Allergies-Medications (Allergen,Severity, Reaction): Coded Allergies: No Known Allergies (Verified , 04/02/13) ROS Review of Systems Except as stated in HPI: all other systems reviewed are Neg Physical Exam Physical Exam Narrative GENERAL: Well-nourished, well-developed patient. SKIN: Warm and dry. HEAD: Normocephalic and atraumatic. EYES: No scleral icterus. No injection or drainage. ENT: No nasal drainage noted. Mucous membranes pink. Airway patent. NECK: Supple, trachea midline. No JVD. CARDIOVASCULAR: Regular rate and rhythm without murmurs, gallops, or rubs. RESPIRATORY: Breath sounds equal bilaterally. No accessory muscle use. BREASTS: Bilateral exam showed no masses , no retractions, no nipple discharge. ABDOMEN/GI: Abdomen soft, non-tender, no rebound, no guarding GENITOURINARY: Exam deferred. Uterine Contractions: Irregular and infrequent (Q15-20 mins) FHT's: Category: 1 Baseline: 145 Reactive: Y Variability: moderate Decels: N EXTREMITIES: No cyanosis. Moderate non-pitting edema to BLE just above ankles. BACK: Nontender without obvious deformity. No CVA tenderness. NEUROLOGICAL: Awake and alert. Motor and sensory grossly within normal limits. Five out of 5 muscle strength in all muscle groups. Normal speech. Data Data Data Vital Signs Reviewed: Yes Orders Vital Signs (Adult) .ON ADMISSION (11/17/16 09:32) ^ Labor Status (11/17/16 09:32) ^ Non Stress Test (11/17/16 09:32) ^ Hydration (11/17/16 09:32) Urinalysis - C+S If Indicated (11/17/16 09:43) Cbc No Diff, Includes Plts (11/17/16:43) Comprehensive Metabolic Panel (11/17/16:43) Uric Acid (11/17/16 09:43) Pamg-1 Test .ONCE (11/17/16:43) Protein Creat Ratio, Random Ur (11/17/16 10:00) MDM MDM Medical Record Reviewed: Yes Narrative Course / MDM 25-year-old at 38/3 weeks gestation presenting with possible rupture of membrane #1 IUP Category 1 tracing, reassuring - Continuous monitoring #2 possible ROM Amni-sure negative, rupture of membranes ruled out #3 hypertension in Several blood pressures ranging 150-160 systolic, no signs or symptoms of preeclampsia except mild pedal edema Platelets within normal limits LFTs within normal limits Uric acid within normal limits Urine protein 100, decreased from November 12 level of 300 (patient has baseline IgA nephropathy) - Admit for 24-hour observation - 24-hour urine protein collection - BP Q4H while awake adriennew Dr. Dodge wdw Dr. Kumar Diagnosis Diagnosis: Primary Impression: Hypertension affecting in third trimester Brandon Foley MD R1 Nov 17, 2016 11:54
[2016-11-17] MEDS ORDERED: LACTATED RINGER'S 1000 ML INJ 1,000 ML IV ONE (19:00)
[2016-11-17] MEDS ORDERED: SODIUM CHLORIDE 0.9% FLUSH 10 ML FLUSH IV FLUSH SCH (21:00)
[2016-11-18] VITALS (10 sets, daily range): BP systolic 124–142; BP diastolic 57–74; PULSE 75–103; RESP 16–20; TEMP 98–98.6
[2016-11-18] MEDS ORDERED: MULTIVIT/MIN/PREN/FOL AC/IRON PRENATAL TAB PO SCH (09:00)
[2016-11-18 10:38] LABS: URINE TOTAL PROTEIN TIMED 62.6 MG/DL
--- NOTE | 2016-11-18 14:56 | HHI.DCPOC ---
Discharge Care Plan Diagnosis: (1) Hypertension affecting in third trimester (2) Nephropathy Additional Problems WATCH FOR SEVERE HEADACHES, SWELLING TO FACE OR HANDS, BLURRED VISION OR SEEING SPOTS, RETURN TO OFFICE OR HOSPITAL Report Symptoms to Your Doctor -Temperature above 100.5 degrees -Redness, of incision or excessive or foul smelling drainage -Unusual pain or calf pain -Increased vaginal bleeding -Painful or difficulty urinating -Feelings of extreme sadness or anxiety after 2 weeks Goals to Promote Your Health * To prevent worsening of your condition and complications * To maintain your health at the optimal level Directions to Meet Your Goals Take your medications as prescribed Follow your dietary instruction Follow activity as directed Ensure plenty of rest for recovery Drink fluids for hydration Keep your appointments as scheduled Take your immunizations and boosters as scheduled If your symptoms worsen call your PCP, if no PCP go to Urgent Care Center or Emergency Room Smoking is Dangerous to Your Health. Avoid second hand smoke Call the 24-hour crisis hotline for domestic abuse at Brielle Philippe Nov 18, 2016 14:56
--- NOTE | 2016-11-18 15:18 | HHI.DS ---
Admission Date Nov 17, 2016 at 11:17 Discharge Date: Nov 18, 2016 Admitting Diagnosis HYPERTENSION AFFECTING IN 3RD TRIMESTER NEPHROPATHY PROTEINURIA Diagnosis: (1) Hypertension affecting in third trimester Diagnosis: Principal (2) Nephropathy Diagnosis: Principal Brief History 25-year-old at 38/3 weeks gestation presenting for leakage of fluid this morning around 8 AM and some edema for the last several days. She denies chest pain, shortness of breath, vaginal bleeding. She denies headaches, vision changes, epigastric pain. Fluid this morning was a small amount and clear. She denies feeling contractions. She thought the fluid was her water breaking at first, but now since no fluid has continued to gush out she is thinking she may have just been leaking urine. Hospital Course ADMITTED FOR HYPERTENSION IN THE 3RD TRIMESTER PROTEINURIA BP NORMALIZED LFT WNL 24 HOUR URINE 1236 PROTEIN, PT HAS IGA NEPHRITIS, WILL CONTINUE TO MONITOR BPP 12/18 Pt Condition on Discharge: Good Discharge Disposition: Discharge Home Discharge Instructions Diet Instructions: As Tolerated, No Restrictions Activities You Can Perform: Regular-No Restrictions Activities to Avoid: Strenuous Activity Follow up Referrals: COMPANY ACCOUNTANT - 1 Week @ [facility] Brielle Philippe Nov 18, 2016 15:18
--- NOTE | 2016-11-18 15:33 | PD.OB.ANTE ---
Subjective Diagnosis: (1) Nephropathy Diagnosis: Principal (2) Hypertension affecting in third trimester Diagnosis: Principal Objective Vital Signs Vital Signs Date Time Temp Pulse Resp B/P Pulse Ox O2 Delivery O2 Flow Rate FiO2 11/18/16 12:06 85 142/74 11/18/16 08:04 98.0 20 11/18/16 08:01 80 140/71 11/18/16 06:08 16 11/18/16 05:12 16 11/18/16 04:01 75 127/74 11/18/16 02:23 103 126/57 11/18/16 00:21 89 124/62 11/18/16 00:20 16 11/18/16 00:18 98.6 11/17/16 22:01 86 122/51 11/17/16 20:19 98.1 18 11/17/16 20:13 77 130/76 11/17/16 18:28 16 11/17/16 18:17 87 124/70 11/17/16 16:35 100 11/17/16 16:30 99 11/17/16 16:25 16 11/17/16 16:25 98 11/17/16 16:24 95 134/87 11/17/16 16:20 98 11/17/16 16:15 98 11/17/16 16:10 95 11/17/16 16:05 90 11/17/16 16:00 93 11/17/16 15:55 91 11/17/16 15:50 92 11/17/16 15:45 89 11/17/16 15:40 89 11/17/16 15:35 94 11/17/16 15:30 94 11/17/16 15:25 88 Lab & Micro Results Test 11/18/16 09:20 Urine Total Volume 24 Hours 1975 ML Urine Total Protein 24 Hour 1236 MG/24HR Date/Time Procedure Status Source Growth 11/17/16 09:55 Urine Culture - Final Complete Urine Clean Catch 50-100,000 CFU/ML MIXED GRAM POSITIVE... Physical Exam GENERAL: Well-nourished, well-developed patient. CARDIOVASCULAR: Regular rate and rhythm without murmurs, gallops, or rubs. RESPIRATORY: Breath sounds equal bilaterally. No accessory muscle use. ABDOMEN/GI: Abdomen soft, non-tender, denies tightening or contractions cervix closed per pervious exam FHT's: Category: [1] EXTREMITIES: No cyanosis or generalized edema to lower extremities, non-tender, without signs of DVT, reflex +1 bilateral patellar. Assessment and Plan Problem List: (1) Nephropathy Status: Chronic (2) Hypertension affecting in third trimester Status: Acute Assessment & Plan: continue to monitor reviewed s/s of pre-eclampsia Assessment and Plan pt's bp within normal limits LFT normal 24 urine protein 1236, will continue to monitor discussed s/s of pre-eclampsia, pt aware when to return to office or hospital BPP 8/10 f/u in office in one week Brielle Philippe Nov 18, 2016 15:33
== END 2016-11-18 14:11 | disposition home or self-care (01) ==
LOC: HOBED 09:23 → H2EA 11:17
PROVIDERS: ADMIT Obstetrics & Gynecology; ATTEND Obstetrics & Gynecology
DX: O16.3 Unspecified maternal hypertension, third trimester (principal); O26.833 Pregnancy related renal disease, third trimester; O12.23 Gestational edema with proteinuria, third trimester; Z3A.38 38 weeks gestation of pregnancy
CPT/HCPCS: 59025; 76819; 76820; 80053; 81001; 82570; 84112; 84156; 84157; 84550; 85027; 87086; 99285; G0378

== ENCOUNTER 2016-11-25 16:37 | Inpatient (IN) | payer OTHER ==
[2016-11-25] VITALS (12 sets, daily range): BP systolic 138–149; BP diastolic 73–93; PULSE 19–88; RESP 10–22; TEMP 97.7–98.5; O2SAT 99–100
[~2016-11-25] VITALS: Ht 172.7 cm; Wt 141.1 kg
--- NOTE | 2016-11-25 18:01 | MH ---
cc: Kasie KUMAR MD DATE OF ADMISSION 11/25/2016 HISTORY Payton is a 25-year-old white female, para 0-0-0-0 who presents to the office today with decreased movement. We noticed at that time that the baby was quite large and sent over for a biophysical profile and a weight. Her weight at the center was 4051 grams, nearly 9 pounds. Interestingly she also had a borderline three hour diabetes screen with the first and second numbers being just under the maximum. Because of this I had a long discussion with the patient and her about the risks and benefits of vaginal versus section. Her cervix is also noninducible. After the discussion she has decided to proceed with a section. PAST OB HISTORY She is para 0-0-0-0. PAST BAG FILLER HISTORY Her Pap test in May of 2016 was negative. Her ____ were negative in 05/2016 as well. PAST MEDICAL HISTORY Remarkable for: 1. IgA nephropathy. 2. Rh negative. PAST SURGICAL HISTORY Negative. ALLERGIES NO KNOWN DRUG ALLERGIES. MEDICATIONS Her current medications are vitamins. FAMILY HISTORY Remarkable for high blood pressure in the father. High cholesterol in the father. Interestingly both of the parents were large babies. SOCIAL HISTORY She drank alcohol socially, none during . She denies any drug use. She is single. She is a former smoker, quit 02/2016. PHYSICAL EXAMINATION GENERAL: This is a well-developed, well-nourished female in no acute distress. CHEST: Clear to auscultation. HEART: Regular rate and rhythm. ABDOMEN: Gravid, very large. I estimate the weight at 9 pounds 4 ounces. PELVIC: External genitalia is normal. Vagina is clean. Cervix is 1 cm, 20% effaced, very posterior I can barely reach it. EXTREMITIES: She has some lower extremity swelling. Her reflexes are normal however. ASSESSMENT AND PLAN 1. Intrauterine at 39+ weeks. 2. macrosomia. I think this baby is even a little bit larger. With the borderline diabetes I am very concerned about shoulder dystocia. She has a nice pelvis however, the cervix is very high, I can barely reach it and it is not inducible. We will go ahead and proceed with a primary section. She last ate at noon, so we will plan to do it about 7:30. 3. IgA nephropathy. We have been following her urine protein. The last 24 hour urine protein was around 800. We will check that in the period as well. 4. Rh negative. We will check the baby's blood type and also give RhoGAM if indicated. R. Ferny Kumar MD RJV/KK /5:13 PM /5:20 PM
[2016-11-25 18:07] LABS: AUTOMATED NEUTROPHIL # 10.7 TH/MM3 (1.8-7.7); BASOPHIL % 0.2 % (0.0-2.0); EOSINOPHIL % 0.1 % (0.0-4.0); HEMATOCRIT 35.4 % (35.0-46.0); HEMO FLAGS DIFF FINAL; LYMPH % 5.6 % (9.0-44.0); LYMPHOCYTE # 0.7 TH/MM3 (1.0-4.8); MEAN CELL VOLUME 87.9 FL (80.0-100.0); MEAN CORPUSCULAR HEMOGLOBIN 30.1 PG (27.0-34.0); MEAN CORPUSCULAR HGB CONC 34.3 % (32.0-36.0); MONO % 5.6 % (0.0-8.0); NEUT % 88.5 % (16.0-70.0); PLATELET COUNT 241 TH/MM3 (150-450); RED BLOOD COUNT 4.03 MIL/MM3 (4.00-5.30); RED CELL DISTRIBUTION WIDTH 14.5 % (11.6-17.2); WHITE BLOOD COUNT 12.1 TH/MM3 (4.0-11.0)
[2016-11-25] MEDS: LACTATED RINGER'S 1000 ML IV SCH ×2 (18:49→20:45)
[2016-11-25] MEDS: ceFAZolin 2 GM PREMIX 50 ML IV SCH ×2 (18:49→20:44)
[2016-11-25] MEDS: CITRIC ACID-SODIUM CITRATE LIQ 30 ML UDC PO SCH ×2 (18:50→20:44)
[2016-11-25] MEDS ORDERED: OXYTOCIN 10 UNIT/ML AMP ONE (18:58)
[2016-11-25] MEDS ORDERED: LACTATED RINGER'S 1000 ML IV ONE (19:00)
[2016-11-25] MEDS ORDERED: OXYTOCIN 30 UNITS-500ML PREMIX 500 ML IV ONE ×2 (20:45)
[2016-11-25] MEDS ORDERED: SIMETHICONE 80 MG CHEWABLE TAB PO PRN (20:45)
[2016-11-25] MEDS ORDERED: SODIUM CHLORIDE 0.9% FLUSH 10 ML FLUSH IV FLUSH PRN (20:45)
[2016-11-25] MEDS ORDERED: ONDANSETRON HCL 4 MG/2 ML VIAL IV PUSH PRN (20:45)
[2016-11-25] MEDS ORDERED: ZOLPIDEM TARTRATE 5 MG TAB PO PRN (20:45)
[2016-11-25] MEDS ORDERED: oxyCODONE/ACETAMINOPHEN 5 MG/325 MG TAB PO PRN ×2 (20:45)
[2016-11-25] MEDS ORDERED: SODIUM CHLORIDE 0.9% FLUSH 10 ML FLUSH IV FLUSH SCH (21:00)
[2016-11-25] MEDS ORDERED: MORPHINE SULFATE PF 5 MG/10 ML VIAL ONE (21:04)
[2016-11-25] MEDS ORDERED: KETOROLAC TROMETHAMINE 60 MG/2 ML (IM) VIAL IM ONE (21:04)
[2016-11-25 22:32] LABS: BACTERIA, URINE RARE /hpf; BLOOD, URINE SMALL (NEG); CALCIUM OXALATE CRYSTALS,URINE MANY /hpf; COMMENT (UR) CULTURE INDICATED; CULTURE IF INDICATED CULTURE INDICATED; GLUCOSE,URINE NEG (NEG); KETONE, URINE NEG (NEG); MUCUS URINE MANY /lpf (OCC); NITRITE,URINE NEG (NEG); PH, URINE 6.5 (5.0-8.5); SQUAMOUS EPITHELIAL CELL URINE 14 /hpf (0-5); URINE COLOR YELLOW (YELLW/STRAW)
[2016-11-25] MEDS ORDERED: OXYTOCIN 30 UNITS-500ML PREMIX 500 ML ONE (23:02)
[2016-11-25] MEDS ORDERED: EPIDURAL-NALOXONE HCL 0.4 MG/ML AMP IV PRN (23:45)
[2016-11-25] MEDS ORDERED: EPIDURAL-NO SYSTEMIC NARCOTICS PRN (23:45)
[2016-11-25] MEDS ORDERED: EPIDURAL-DO NOT ADMINISTER ANTICOAGULANTS PRN (23:45)
[2016-11-25] MEDS ORDERED: EPIDURAL-DIPHENHYDRAMINE HCL 50 MG/ML VIAL IV PUSH PRN (23:45)
[2016-11-25] MEDS ORDERED: EPIDURAL-DIPHENHYDRAMINE HCL 50 MG CAP PO PRN (23:45)
[2016-11-26] MEDS ORDERED: LACTATED RINGER'S 1000 ML INJ 1,000 ML IV SCH (01:45)
[2016-11-26 03:15] VITALS: BP 140/86; PULSE 80; RESP 18
[2016-11-26] MEDS: DOCUSATE SODIUM 50 MG/SENNA 8.6 MG TAB PO PRN (05:10)
[2016-11-26] MEDS: IBUPROFEN 600 MG TAB PO PRN ×3 (05:10→20:28)
[2016-11-26] MEDS ORDERED: OXYTOCIN 30 UNITS-500ML PREMIX 500 ML IV PRN (06:45)
[2016-11-26 08:11] LABS: AUTOMATED NEUTROPHIL # 12.4 TH/MM3 (1.8-7.7); BASOPHIL % 0.3 % (0.0-2.0); EOSINOPHIL % 0.1 % (0.0-4.0); HEMATOCRIT 31.4 % (35.0-46.0); HEMO FLAGS DIFF FINAL; LYMPH % 3.7 % (9.0-44.0); LYMPHOCYTE # 0.5 TH/MM3 (1.0-4.8); MEAN CELL VOLUME 88.7 FL (80.0-100.0); MEAN CORPUSCULAR HEMOGLOBIN 29.7 PG (27.0-34.0); MEAN CORPUSCULAR HGB CONC 33.5 % (32.0-36.0); MONO % 4.4 % (0.0-8.0); NEUT % 91.5 % (16.0-70.0); PLATELET COUNT 194 TH/MM3 (150-450); RED BLOOD COUNT 3.54 MIL/MM3 (4.00-5.30); RED CELL DISTRIBUTION WIDTH 14.1 % (11.6-17.2); WHITE BLOOD COUNT 13.5 TH/MM3 (4.0-11.0)
[2016-11-26 08:20] VITALS: BP 134/83; PULSE 74; RESP 18; TEMP 97.8
--- NOTE | 2016-11-26 10:45 | HHI.OB ---
Subjective Post Operative Day: 1 Objective Vitals/I&O Vital Signs Date Time Temp Pulse Resp B/P Pulse Ox O2 Delivery O2 Flow Rate FiO2 11/26/16 08:20 97.8 74 18 134/83 11/26/16 03:15 80 18 140/86 11/25/16 23:40 97.7 76 20 147/91 11/25/16 22:30 139/86 11/25/16 22:30 80 21 99 11/25/16 22:15 22 100 11/25/16 22:15 97.8 11/25/16 22:15 79 146/73 11/25/16 22:00 149/73 11/25/16 22:00 75 20 99 11/25/16 21:44 16 100 11/25/16 21:43 80 144/93 11/25/16 21:22 76 18 100 11/25/16 21:21 140/79 11/25/16 21:02 18 11/25/16 21:02 19 138/88 11/25/16 21:02 88 11/25/16 21:02 10 100 11/25/16 21:01 97.9 11/25/16 19:15 18 11/25/16 19:13 88 147/90 11/25/16 19:13 98.5 Result Diagram: 11/26/16 0759 Objective Remarks GENERAL: Well-nourished, well-developed patient. CARDIOVASCULAR: Regular rate and rhythm without murmurs, gallops, or rubs. RESPIRATORY: Breath sounds equal bilaterally. No accessory muscle use. ABDOMEN/GI: Abdomen soft, non-tender, bowel sounds present. Incision: PRIMAPORE Clean, dry and intact. Fundus: Firm, non-tender at umbilicus. GENITOURINARY: Light to moderate bleeding. EXTREMITIES: No cyanosis, +2 EDEMA TO LOWER EXTREMITIES, non-tender, without signs of DVT. Medications and IVs Current Medications Medications (Trade) Dose Ordered Sig/Savage Route Start Time Stop Time Status Last Admin (Lr 1000 ml Inj) 1,000 ml @ 100 mls/hr Q10H IV 11/26/16 01:45 11/26/16 21:44 11/26/16 03:08 (NS Flush) 2 ml BID IV FLUSH 11/25/16 21:00 (NS Flush) 2 ml UNSCH PRN IV FLUSH 11/25/16 20:45 (Mylicon Chew) 80 mg QID PRN PO 11/25/16 20:45 (Motrin) 600 mg Q6H PRN PO 11/25/16 20:45 11/26/16 05:10 (Percocet 5-325 Mg) 1 tab Q4H PRN PO 11/25/16 20:45 Oxycodone/ Acetaminophen 2 tab 2 tab Q4H PRN PO 11/25/16 20:45 (Ancef Inj/NS Inj) 100 ml @ 200 mls/hr Q8H IV 11/26/16 05:00 11/26/16 13:29 11/26/16 05:09 (Marcela-Colace) 2 tab Q12H PRN PO 11/25/16 20:45 11/26/16 05:10 (Ambien) 5 mg HS PRN PO 11/25/16 20:45 (M-M-R Ii Inj) 0.5 ml ONCE ONCE SQ 11/26/16 16:00 11/26/16 16:01 (Boostrix Inj) 0.5 ml ONCE ONCE IM 11/26/16 16:00 11/26/16 16:01 (Zofran Inj) 4 mg Q6H PRN IV PUSH 11/25/16 20:45 11/26/16 00:12 Miscellaneous Information NO SYSTEMIC NARCOTICS TO BE GIVEN FO... UNSCH PRN .XX 11/25/16 23:45 11/26/16 23:44 (Narcan Inj) 0.4 mg UNSCH PRN IV 11/25/16 23:45 11/26/16 23:44 (Benadryl Inj) 25 mg Q6H PRN IV PUSH 11/25/16 23:45 11/26/16 23:44 (Benadryl) 50 mg Q6H PRN PO 11/25/16 23:45 11/26/16 23:44 Miscellaneous Information ALL NURSING DEPARTMENTS UNSCH PRN .XX 11/25/16 23:45 11/26/16 23:44 Assessment/Plan Problem List: (1) Anemia Plan: WILL TREAT PP (2) S/P primary low transverse Plan: ROUTINE Assessment and Plan pod #1 PT DOING WELL PAIN WELL CONTROLLED WITH ORAL PAIN MEDICATION PT TO SHOWER TODAY AND AMBULATE IN ROOM IN NICU, DOING BETTER PER MOM MOM PUMPING/ ROUTINE Discharge Planning CONSIDER DC IN 1-2 DAYS Brielle Philippe Nov 26, 2016 10:45
[2016-11-26] MEDS ORDERED: FAMOTIDINE 20 MG TAB PO PRN (11:30)
[2016-11-26 13:46] VITALS: BP 121/81; PULSE 89; RESP 18; TEMP 98.5
[2016-11-26 15:59] VITALS: RESP 16
[2016-11-26] MEDS ORDERED: MEASLES, MUMPS, RUBELLA VACCINE 0.5 ML VIAL SQ ONE (16:00)
[2016-11-26] MEDS ORDERED: DIPHTH/TETANUS/ACEL PERTUSSIS (BOOSTER) 0.5 ML VIAL/PFS IM ONE (16:00)
[2016-11-26 17:45] VITALS: BP 137/75; PULSE 87; RESP 16; TEMP 98.2
[2016-11-26] MEDS: ACETAMINOPHEN 325 MG TAB PO PRN (20:29)
[2016-11-26 23:00] VITALS: BP 142/90; PULSE 105; RESP 20; TEMP 98.4
[2016-11-27] MEDS: ACETAMINOPHEN 325 MG TAB PO PRN (02:27)
[2016-11-27] MEDS: DOCUSATE SODIUM 50 MG/SENNA 8.6 MG TAB PO PRN (02:27)
[2016-11-27] MEDS: IBUPROFEN 600 MG TAB PO PRN ×2 (02:28→08:37)
[2016-11-27 08:35] VITALS: BP 139/69; PULSE 104; RESP 18; TEMP 98.2
--- NOTE | 2016-11-27 12:48 | HHI.OB ---
Subjective Post Operative Day: 2 Objective Vitals/I&O Vital Signs Date Time Temp Pulse Resp B/P Pulse Ox O2 Delivery O2 Flow Rate FiO2 11/27/16 08:35 98.2 104 18 139/69 11/26/16 23:00 98.4 105 20 11/26/16 23:00 142/90 11/26/16 17:45 98.2 87 16 137/75 11/26/16 15:59 16 11/26/16 13:46 98.5 89 18 121/81 Result Diagram: 11/26/16 0759 Objective Remarks GENERAL: Well-nourished, well-developed patient. CARDIOVASCULAR: Regular rate and rhythm without murmurs, gallops, or rubs. RESPIRATORY: Breath sounds equal bilaterally. No accessory muscle use. ABDOMEN/GI: Abdomen soft, non-tender, bowel sounds present. Incision: Clean, dry and intact. Fundus: Firm, non-tender at umbilicus. GENITOURINARY: Light to moderate bleeding. EXTREMITIES: No cyanosis, +2 EDEMA TO LOWER EXTREMITIES, non-tender, without signs of DVT. Medications and IVs Current Medications Medications (Trade) Dose Ordered Sig/Savage Route Start Time Stop Time Status Last Admin (NS Flush) 2 ml BID IV FLUSH 11/25/16 21:00 (NS Flush) 2 ml UNSCH PRN IV FLUSH 11/25/16 20:45 (Mylicon Chew) 80 mg QID PRN PO 11/25/16 20:45 (Motrin) 600 mg Q6H PRN PO 11/25/16 20:45 11/27/16 08:37 (Percocet 5-325 Mg) 1 tab Q4H PRN PO 11/25/16 20:45 11/27/16 08:38 (Percocet 5-325 Mg) 2 tab Q4H PRN PO 11/25/16 20:45 (Marcela-Colace) 2 tab Q12H PRN PO 11/25/16 20:45 11/27/16 02:27 (Ambien) 5 mg HS PRN PO 11/25/16 20:45 (Zofran Inj) 4 mg Q6H PRN IV PUSH 11/25/16 20:45 11/26/16 00:12 (Pepcid) 20 mg BID PRN PO 11/26/16 11:30 11/26/16 12:58 (Tylenol) 650 mg Q4H PRN PO 11/26/16 16:30 11/27/16 02:27 Assessment/Plan Problem List: (1) Anemia Plan: WILL TREAT PP (2) S/P primary low transverse Plan: ROUTINE Assessment and Plan pod #2 PT DOING WELL PAIN WELL CONTROLLED WITH ORAL PAIN MEDICATION in room doing well ROUTINE Discharge Planning dc home today Brielle Philippe Nov 27, 2016 12:48
--- NOTE | 2016-11-27 12:49 | HHI.DCPOC ---
Discharge Care Plan Diagnosis: (1) Anemia (2) S/P primary low transverse Your Health Problems Are: delivery Additional Problems will treat with daily oral iron once she is no longer taking pain mediation Report Symptoms to Your Doctor -Temperature above 100.5 degrees -Redness, of incision or excessive or foul smelling drainage -Unusual pain or calf pain -Increased vaginal bleeding -Painful or difficulty urinating -Feelings of extreme sadness or anxiety after 2 weeks Goals to Promote Your Health * To prevent worsening of your condition and complications * To maintain your health at the optimal level Directions to Meet Your Goals Take your medications as prescribed Follow your dietary instruction Follow activity as directed Ensure plenty of rest for recovery Drink fluids for hydration Keep your appointments as scheduled Take your immunizations and boosters as scheduled If your symptoms worsen call your PCP, if no PCP go to Urgent Care Center or Emergency Room Smoking is Dangerous to Your Health. Avoid second hand smoke Call the 24-hour crisis hotline for domestic abuse at Brielle Philippe Nov 27, 2016 12:49
--- NOTE | 2016-11-27 12:52 | HHI.DS ---
Admission Date Nov 25, 2016 at 16:37 Discharge Date: Nov 27, 2016 Admitting Diagnosis 39 week macrosomia primary c section Diagnosis: (1) S/P primary low transverse Diagnosis: Principal (2) Anemia Diagnosis: Secondary Delivery Date: Nov 25, 2016 : Primary Reason: macrosomia Infant: Male Brief History primary c section for macrosomia anemia routine Hospital Course routine care Pt Condition on Discharge: Good Discharge Disposition: Discharge Home Discharge Instructions Diet Instructions: As Tolerated, No Restrictions Additional Diet Instructions: Drink at least 8 - 16 oz bottles of water a day Activities You Can Perform: Shower Only-No Bath Activities to Avoid: Prolonged Standing, Strenuous Activity, Sexual Activity Additional Activity Instruc.: No driving until off pain medications Do not lift anything heavier than your baby in an infant carrier Follow up Referrals: INTERNET MERCHANT - 1 Week @ [facility] New Medications: Ibuprofen (Ibuprofen) 600 Mg Tab 600 MG PO Q6H Pain Management #30 TAB Oxycodone-Acetaminophen (Oxycodone-Acetaminophen) 5-325 mg Tab 1 TAB PO Q4H moderate pain #30 TAB Brielle Philippe Nov 27, 2016 12:52
[2016-11-27] MEDS ORDERED: OXYC1TAB63 PO (14:13)
[2016-11-27] MEDS ORDERED: IBUP-232 PO (14:13)
--- NOTE | 2016-11-28 12:50 | MP ---
cc: Kasie KUMAR MD DATE OF SURGERY 11/25/2016 PREOPERATIVE DIAGNOSIS 1. macrosomia 2. Borderline OGTT 3. Non-inducible cervix POSTOPERATIVE DIAGNOSIS 1. macrosomia 2. Borderline OGTT 3. Non-inducible cervix PROCEDURE Primary low transverse section ANESTHESIA Spinal SURGEON Marcellus Kumar MD FINDINGS A normal large infant of 8 pounds 9 ounces, 's 7, 7 and 9. Normal uterus, normal tubes, normal ovaries, normal posterior and anterior cul-de-sacs. COMPLICATIONS None COUNTS Correct ESTIMATED BLOOD LOSS 600 cc FLUIDS Crystalloids CONDITION The patient tolerated the procedure well and went to the recovery room in good condition. INDICATIONS FOR THE PROCEDURE This is a lady who came in and went for a biophysical profile for decreased movement. She had an ultrasound at that time and noted the baby was quite large. The baby was measuring around 4100 grams. This was some concern because her one and two hour values on her OGTT were three points away from being diabetic. She probably did develop diabetes later in the . Furthermore, her cervix was long, closed and high. Considering the size of this baby and being at 39 weeks plus, we decided to go ahead and perform a primary section. PROCEDURE IN DETAIL Under an adequate level of anesthesia, she was prepped and draped for abdominal surgery. A Pfannenstiel incision was made and carried down to the fascia. The fascia was taken off the rectus muscle by blunt and sharp dissection. The rectus muscles were spread bluntly and the peritoneum was entered under direct vision without difficulty. The incision was extended with care to avoid the urinary bladder. A bladder blade was placed and a bladder flap created in the usual fashion. The uterine incision was made in a transverse manner along the lower uterine segment which was not well-developed. It was taken down in the midline until the intrauterine cavity was entered. A large amount of clear fluid was noted. The breech was grasped and delivered without difficulty. The legs were delivered and the thorax was delivered. The arms were reduced bilaterally without difficulty. With gentle fundal pressure the vertex was delivered without difficulty and the hypopharynx and nasopharynx were suctioned. The cord doubly clamped and cut and the infant handed to the resuscitation team present. The placenta was delivered manually. The uterus was curettaged twice with a wet lap and irrigated with a large amount of fluid. The uterine incision was then repaired with 2-0 Vicryl in a running locking fashion, with the second layer imbricating the first. Hemostasis was excellent. The cul-de-sac and gutters were cleaned of blood and debris. The uterus was delivered back into the abdomen. The rectus muscles were reapproximated with 0 Vicryl in interrupted fashion. The fascia was repaired from lateral to midline with 0 Vicryl and the subcu was repaired with 3-0 Vicryl. The skin was repaired with a 4-0 Vicryl in a subcuticular manner. The wound was sterilely dressed. She tolerated the procedure well and went to the recovery room in satisfactory condition. R. MD SADIQ Moran/ABE /3:10 PM /12:48 PM
== END 2016-11-27 14:46 | disposition home or self-care (01) | DRG 765 ==
LOC: H2EB 16:37 → H1EA 23:24
PROVIDERS: ADMIT Obstetrics & Gynecology; ATTEND Obstetrics & Gynecology
PROC: 10D00Z1 Extraction of Products of Conception, Low, Open Approach (ICD-10-PCS; principal; 2016-11-25)
DX: O36.63X0 Maternal care for excessive fetal growth, third trimester, not applicable or unspecified (principal); N02.8 Recurrent and persistent hematuria with other morphologic changes; O26.833 Pregnancy related renal disease, third trimester; Z37.0 Single live birth; Z3A.39 39 weeks gestation of pregnancy; Z87.891 Personal history of nicotine dependence; O36.8130 Decreased fetal movements, third trimester, not applicable or unspecified; O99.02 Anemia complicating childbirth; R73.03 Prediabetes
CPT/HCPCS: 59025; 81001; 85025; 86850; 86900; 86901; 87086; 90715; J0690; J1885; J2274; J2405; J2590; J7120

== ENCOUNTER → 2016-11-25 | Outpatient (CLI) | payer OTHER ==
[~2016-11-25] MED LIST changes: -CYCL-36 PO; -DICL75 PO; +IBUP-232 PO; +OXYC1TAB63 PO; -Z.0.BCPILL PO
== END ==
LOC: HPND 11:10
PROVIDERS: ATTEND Obstetrics & Gynecology
DX: O36.8130 Decreased fetal movements, third trimester, not applicable or unspecified (principal); Z3A.39 39 weeks gestation of pregnancy
CPT/HCPCS: 76816; 76818